=== PATIENT | female | born 1945 | race Caucasian/White ===

== ENCOUNTER 2024-05-07 06:24 | Emergency (ER) | payer BC, SELFPAY ==
[2024-05-07] VITALS (8 sets, daily range): BP systolic 139–153; BP diastolic 54–80; BMI 21.9
--- NOTE | 2024-05-07 07:13 | ED.GENMED ---
History of Present Illness
General
Chief Complaint: Fall
Source: patient, [facility] crew and [facility]
Exam Limitations: dementia
Time Seen by Provider: 05/07/24 06:58
Nursing documentation reviewed up to this point in time: agreed with
History of Present Illness
History of Present Illness:
Patient with history of dementia, presents [facility] ED from [facility] after she was found on the floor next to her bed by [facility] staff. Patient states that she had trouble sleeping and remembers falling off the bed, hitting her head on the floor
in the process. However, patient does not have any any complaints. Denies headache. Denies neck pain. Denies chest pain. Denies shortness of breath. Denies back pain. Denies dizziness. Denies blurred vision. Denies loss of sensation or
weakness.
Past History
Past History
ED Past Medical History: HTN, IDDM, Renal failure and Other (Dementia)
Social History
Tobacco: Non-smoker
Alcohol: None
Drug: None
Living: [facility]
Employment: Not employed
Family History
Family History: Unable to obtain (Dementia)
Review of Systems
Review of Systems
Allergies reviewed?: Yes
Unable to obtain full review of systems at this time due to: dementia
All Other Systems: Not applicable
Phy Exam
Physical Exam
Physical Exam:
Physical Exam
General: no apparent distress, not acutely ill. afebrile
Head: nc/at. eomi
Neck: supple. no midline tenderness.
Heart: s1/s2 regular rate and rhythm, no murmur. equal radial pulses.
Lungs: no acute respiratory distress. clear bilaterally
Abdomen: normal bowel sounds. not tender.
Neuro: alert and oriented x 2. no focal neurological deficits
Skin: no rash
Psychiatric: well kept. interactive and cooperative. pleasantly confused
Extremities: no edema. no calf tenderness.
Course
Orders/Labs/Results
Orders:
Orders
05/07/24 09:19
CT Head W/o Iv Contrast Urgent
Comment:
Reason For Exam: trauma
Vital Signs
Initial and Last Documented VS:
Initial Vital Signs
Temp Pulse Resp BP Pulse Ox
98.3 F 64 16 153/65 99
05/07/24 06:26 05/07/24 06:26 05/07/24 06:26 05/07/24 06:26 05/07/24 06:26
Last Documented Vital Signs
Temp Pulse Resp BP Pulse Ox
98.3 F 70 16 140/65 100
05/07/24 06:26 05/07/24 11:04 05/07/24 11:04 05/07/24 11:04 05/07/24 11:04
MDM/Problems Addressed
MDM/Problems Addressed:
CT head: NAD.
Patient remains afebrile, hemodynamically stable, and without any neurological abnormalities during extended course of observation in ED. As such, as there is no other evidence of injury noted on exam, patient will be discharged back to nursing
home for continual care.
*Critical Care Note
Total Time (30-74mins, 75-104mins- exclusive of procedures): Not Applicable
ED Attending Note
-
Portions of this chart may have been created with voice recognition software.� Occasional wrong word or��sound alike� substitutions may have occurred due to the inherent limitations of voice recognition software.
Discharge Plan
Departure
Patient Disposition: Snf/SNF
Date of Disposition: 05/07/24
Time of Disposition: 10:30
Condition: Good
Discharge Problem:
Head injury
Instructions: Head Injury in Adults (DC)
Prescriptions:
No Action
metformin 500 mg tablet
500 mg PO QPM
clonidine HCl 0.1 mg tablet
0.1 mg PO DAILY
acetaminophen 325 mg Tablet
650 mg PO Q6H PRN (Reason: mild pain)
acetaminophen 325 mg Tablet
650 mg PO Q2H PRN (Reason: elevated temp)
atorvastatin 10 mg tablet
10 mg PO HS
metoprolol tartrate 100 mg Tablet
100 mg PO BID
clonidine HCl 0.2 mg tablet
0.2 mg PO HS
hydralazine 50 mg tablet
50 mg PO BID
nystatin 100,000 unit/gram Powder
1 applic TOPICAL [id number] PRN (Reason: rash/redness)
losartan 100 mg tablet
100 mg PO DAILY
lamotrigine 100 mg tablet
100 mg PO DAILY
duloxetine 60 mg Capsule,Delayed Release(Dr/Ec)
60 mg PO HS
Janumet XR 50-500 mg tablet, ER multiphase 24 hr
1 tab PO DAILY
acetaminophen 325 mg Tablet
650 mg PO BID
insulin aspart U-100 [Novolog U-100 Insulin aspart] 100 unit/mL Solution
5 unit SC AC
pantoprazole 40 mg Tablet,Delayed Release (Dr/Ec)
40 mg PO DAILY
buspirone 10 mg Tablet
10 mg PO .AFTERNOON
docusate sodium [Colace] 100 mg Capsule
100 mg PO BID
buspirone 7.5 mg Tablet
7.5 mg PO BID
loratadine 10 mg Tablet
10 mg PO DAILY
Eucerin Lotion
1 applic TOPICAL HS
Rx Instructions:
apply to b/l legs and feet
aripiprazole [Abilify] 15 mg Tablet
15 mg PO DAILY
insulin detemir U-100 100 unit/mL (3 mL) Insulin Pen
20 unit SC HS
guaifenesin 600 mg Tablet Extended Release 12hr
600 mg PO Q12H PRN (Reason: cough/congestion)
Referrals:
Lanette Joseph MD [Family Provider] -
Activity Restrictions/Additional Instructions:
As discussed, you are being discharged [facility] to [facility] for [facility] care.
Interventions
Interventions:
*Risk Screen - Suicide Last Done: 05/07/24 06:26
*General Assessment Last Done: 05/07/24 06:26
*Neglect/Abuse Screening Last Done: 05/07/24 06:26
ED- Fall Risk Assessment Last Done: 05/07/24 06:45
*ED COVID-19 Vaccine History Last Done: 05/07/24 06:26
*Nursing Disposition Last Done: 05/07/24 11:04
ED-Musculoskeletal Assessment Last Done: 05/07/24 06:35
ED- Neurological Assessment Last Done: 05/07/24 07:07
ED-Skin Assessment Last Done: 05/07/24 06:35
Discharge Date and Time
Discharge Date/Time: 05/07/24 11:05
Print Language: SYRIAC
--- NOTE | 2024-05-07 10:46 | EDRN ---
Discharge info phoned to [facility]
== END 2024-05-07 11:05 ==
LOC: EMR 06:24
PROVIDERS: EMERGENCY PHYSICIAN Emergency Medicine; FAMILY PHYSICIAN Internal Medicine
DX: S09.90XA Unspecified injury of head, initial encounter (principal); W06.XXXA Fall from bed, initial encounter; I10 Essential (primary) hypertension; E11.9 Type 2 diabetes mellitus without complications; F03.90 Unspecified dementia, unspecified severity, without behavioral disturbance, psychotic disturbance, mood disturbance, and anxiety
CPT/HCPCS: 99284; 70450

== ENCOUNTER 2025-04-26 13:07 | Inpatient (IN) | payer MEDICARE, BC, SELFPAY ==
[2025-04-26] VITALS (18 sets, daily range): BP systolic 96–213; BP diastolic 55–97; BMI 22.1; BMI 21.8
[2025-04-26 07:50] LABS: Glucose - Point of Care 316 mg/dl (70-99)
--- NOTE | 2025-04-26 07:51 | ED.GENMED ---
History of Present Illness
General
Chief Complaint: Change in Mental Status
Source: patient and ambulance crew
Exam Limitations: dementia
Time Seen by Provider: 04/26/25 07:50
Nursing documentation reviewed up to this point in time: agreed with
History of Present Illness
History of Present Illness:
80-year-old female presents emergency department due to altered mental status unclear onset. No focal weakness patient has history of dementia she appears very fatigued. It was reported that she had some diarrhea.
Past History
Past History
ED Past Medical History: CHF, HTN, IDDM, Renal failure and Other (Dementia)
Social History
Tobacco: Non-smoker
Alcohol: None
Drug: None
Living: longterm
Employment: Not employed
Family History
Family History: Unable to obtain (Dementia)
Review of Systems
Review of Systems
Unable to obtain full review of systems at this time due to: dementia
ABD/GI: Reports diarrhea
Phy Exam
Physical Exam
Physical Exam:
Physical Exam
General: Appears drowsy temperature 99.5
Neck: supple. no meningeal signs. normal posterior pharynx
Heart: s1/s2 regular rate and rhythm, no murmur. equal radial
pulses.
HEENT: Pupils equal round reactive to light, EOMI
Lungs: no acute respiratory distress. clear bilaterally
Abdomen: normal bowel sounds. not tender. no CVAT
Neuro: alert and but not oriented. no focal neurological deficits cranial nerves II through XII intact
Skin: no rash
Psychiatric: well kept. interactive and cooperative
Extremities: no edema. no calf tenderness. negative homans. good distal pulses
Course
Orders/Labs/Results
Orders:
Orders
04/26/25 07:50
CT Head W/o Iv Contrast Urgent
Comment:
Reason For Exam: altered mental status
Cardiac Monitoring- Treatment ONCE
IV Insert/Care/Rem.- Treatment PRN
Pulse Ox/cont/shift [RESP] Stat
Quantity: 1
04/26/25 07:51
Electrocardiogram (*1) Stat
Reason for Study: Other
Other Reason for Exam: neuro symptoms
EKG- Treatment ONCE
04/26/25 07:57
Complete Blood Count/With Diff Urgent
Comprehensive Metabolic Panel Urgent
Free T4 Urgent
PTT Urgent
Prothrombin Time Urgent
TSH Reflex To Free T4 Urgent
Comment: ADD
Troponin I Urgent
Urinalysis Reflex To Culture Urgent
Date Specimen was Collected: 04/26/25
Time Specimen was Collected: 07:56
Urine Drug Abuse Screen Urgent
Date Specimen was Collected: 04/26/25
Time Specimen was Collected: 07:56
Urine Microscopic Reflex Cult Urgent
04/26/25 08:23
Add On- LAB Urgent
Tests Added?: TSH w/reflex T4
04/26/25 08:25
CT Abd/pelvis W Iv Cont Urgent
Comment:
Reason For Exam: diarrhea, leukocytosis
CR Chest - 2 Views Urgent
Comment:
Reason For Exam: altered mental status
04/26/25 09:19
Diphenhydramine [Benadryl] 50 mg IV NOW STA
Hydrocortisone Sod Succinate [Solu-Cortef] 200 mg IV NOW STA
04/26/25 11:43
Troponin I Urgent
04/26/25 11:49
Alcohol Stat
Urine Drug Abuse Screen Stat
04/26/25 11:51
Add On - Microbiology Urgent
Tests Added?: urine drug screen
Abnormal Lab Results
04/26/25 04/26/25
07:48 07:57
WBC 15.7 H 10^3/uL
(4.8-10.8)
MCH 31.1 H pg
(27.0-31.0)
MPV 10.8 H fL
(7.4-10.4)
Abs Immat Gran (auto) 0.1 H 10^3/uL
(0-0.05)
Absolute Neuts (auto) 13.0 H 10^3/uL
(1.4-6.5)
Absolute Monos (auto) 1.0 H 10^3/uL
(0.1-0.6)
Neutrophils % 82.9 H %
(42.2-75.2)
Lymphocytes % 10.0 L %
(20.5-51.1)
Chloride 97 L mmol/L
(98-107)
BUN 18 H mg/dl
(7-17)
Glucose 349 H mg/dl
(70-99)
Calcium 11.0 H mg/dl
(8.4-10.2)
Troponin I 0.114 H* ng/ml
TSH (Reflex) 0.18 L uIU/ml
(0.47-4.68)
Urine Ketones 2+ A
(Negative)
Ur Occult Blood Reflex 3+ A
(Negative)
Urine RBC 3-6 A /HPF
(0-2)
Urine Bacteria (Reflex) Few A
(Negative)
Urine Glucose 4+ A
(Negative)
Urine Albumin (Reflex) 4+ A
(Neg - Trace)
POC Glucose 316 H mg/dl
(70-99)
04/26/25 07:57
04/26/25 07:57
Vital Signs
Initial and Last Documented VS:
Initial Vital Signs
Temp Pulse Resp BP Pulse Ox
99.5 F 65 15 207/96 97
04/26/25 07:40 04/26/25 07:40 04/26/25 07:40 04/26/25 07:40 04/26/25 07:40
Last Documented Vital Signs
Temp Pulse Resp BP Pulse Ox
99.5 F 71 20 179/81 98
04/26/25 07:40 04/26/25 11:30 04/26/25 11:30 04/26/25 11:00 04/26/25 11:30
MDM/Problems Addressed
Differential Diagnosis Includes:
CVA, UTI, hypovolemia
MDM/Problems Addressed:
80-year-old female with mild troponin elevation, altered mental status. Unable to assess symptoms no signs of ST elevation NC.
Chronic conditions affecting care: HTN and Cardiomyopathy
Acute Exacerbation and/or Progression of Chronic Illness: HTN and Cardiomyopathy
*Radiology
Radiology exam reviewed: radiology read reviewed (Chest x-ray no acute findings CT head no acute findings)
*Pulse Oximetry
SaO2: 98
Oxygen Mode of Delivery: Room air
Patient hypoxic: no
*EKG
Interpreted by ED Provider?: Yes
EKG Intrepretation Date: 04/26/25
EKG Intrepretation Time: 08:27
Interpretation: normal
Comparison EKG: no changes
Heart Rate: 66
Rate: normal
Rhythm: sinus
[place]: normal axis
Interval: normal interval
QRS Pattern: normal QRS
Ischemia: no ischemia
*Raimann Machine Operator Interpretation
Rate: normal
Interpretation: normal
Heart Rate: 65
Rhythm: sinus
*Critical Care Note
Total Time (30-74mins, 75-104mins- exclusive of procedures): Not Applicable
Data Reviewed
Review of Other/Old Records Reveals: Labs
Patient Management
Social determinants of health affecting care: Living situation
Discussion with other providers: Hospitalist and Morning Nanny (neurology to evaluate)
Escalation/DeEscalation of care consider admission/obs:
admit indicated
ED Attending Note
-
Portions of this chart may have been created with voice recognition software.� Occasional wrong word or��sound alike� substitutions may have occurred due to the inherent limitations of voice recognition software.
Discharge Plan
Departure
Patient Disposition: Admit
Date of Disposition: 04/26/25
Time of Disposition: 11:45
Admit to: Telemetry
Presentation/result/management discussed w/ accepting MD/DO: Hospitalist
Patient with high blood pressure during this ER visit?: Yes
Condition: Fair
Discharge Problem:
Acute alteration in mental status, Elevated troponin, Diarrhea
Prescriptions:
No Action
metformin 500 mg tablet
500 mg PO QPM
acetaminophen 325 mg Tablet
650 mg PO Q6HPRN PRN (Reason: mild pain)
acetaminophen 325 mg Tablet
650 mg PO Q2HPRN PRN (Reason: elevated temp)
atorvastatin 10 mg tablet
10 mg PO HS
metoprolol tartrate 100 mg Tablet
100 mg PO BID
clonidine HCl 0.2 mg tablet
0.2 mg PO HS
Janumet XR 50-500 mg tablet, ER multiphase 24 hr
1 tab PO DAILY
acetaminophen 325 mg Tablet
650 mg PO BID
pantoprazole 40 mg Tablet,Delayed Release (Dr/Ec)
40 mg PO DAILY
buspirone 10 mg Tablet
10 mg PO TID
docusate sodium [Colace] 100 mg Capsule
100 mg PO BID
loratadine 10 mg Tablet
10 mg PO DAILY
Eucerin Lotion
1 applic TOPICAL HS
Rx Instructions:
apply to b/l legs and feet
trazodone 50 mg Tablet
25 mg PO HS
lisinopril 20 mg Tablet
20 mg PO DAILY
cyanocobalamin (vitamin B-12) 1,000 mcg Tablet
1,000 mcg PO DAILY
olanzapine 2.5 mg Tablet
2.5 mg PO DAILY
escitalopram oxalate [Lexapro] 10 mg Tablet
10 mg PO DAILY
cholecalciferol (vitamin D3) [Vitamin D3] 25 mcg (1,000 unit) Tablet
25 mcg PO HS
insulin glargine [Basaglar KwikPen U-100 Insulin] 100 unit/mL (3 mL) Insulin Pen
12 unit SC HS
Interventions
Interventions:
*Risk Screen - Suicide Last Done: 04/26/25 07:40
*General Assessment Last Done: 04/26/25 07:40
*Neglect/Abuse Screening Last Done: 04/26/25 07:40
*ED- Fall Risk Assessment Last Done: 04/26/25 08:18
*ED COVID-19 Vaccine History Last Done: 04/26/25 08:18
ED- Pulmonary Assessment Last Done: 04/26/25 08:19
ED- Neurological Assessment Last Done: 04/26/25 08:19
ED- Cardiac Assessment Last Done: 04/26/25 08:19
Discharge Date and Time
Print Language: SERBIAN
[2025-04-26 08:07] LABS: Hematocrit 42.0 % (37.0-47.0); Hemoglobin 14.4 g/dL (12.0-16.0); Mean Corp Hgb Conc. 34.3 g/dL (33.0-37.0); Mean Corpuscular Volume 90.7 fL (81.0-99.0); Nucleated Red Blood Cells % 0 %; Platelet Count 227 10^3/uL (130-400); Red Cell Dist. Width 12.1 % (11.5-14.5)
[2025-04-26 08:12] LABS: Urine Character Clear (Clear)
[2025-04-26 08:16] LABS: INR 1.00; PT 13.5 Sec (11.4-14.6)
[2025-04-26 08:17] LABS: APTT 26.0 Sec (23.4-35.0)
[2025-04-26 08:20] LABS: Urine White Cell 0-2 /HPF (0-5)
[2025-04-26 08:22] LABS: ALT (SGPT) 16 U/L (0-35); AST (SGOT) 20 U/L (14-36); Albumin 4.9 g/dl (3.5-5.0); Alkaline Phosphatase 77 U/L (38-126); Blood Urea Nitrogen 18 mg/dl (7-17); Calcium 11.0 mg/dl (8.4-10.2); Carbon Dioxide 29 mmol/L (22-30); Chloride 97 mmol/L (98-107); Estimated Creatinine Clearance 56 ml/min; Glucose 349 mg/dl (70-99); Potassium 4.5 mmol/L (3.5-5.1); Sodium 136 mmol/L (135-145); Total Protein 7.3 g/dl (6.3-8.2); eGFR > 60.00
[2025-04-26 08:35] LABS: Troponin I 0.114 ng/ml
[2025-04-26] MEDS: SOLU-CORTEF 200 MG IV (10:25)
[2025-04-26] MEDS: BENADRYL 50 MG IV (10:26)
--- NOTE | 2025-04-26 12:29 | HPS.HSE ---
Addendum entered and electronically signed by Mic Stanton MD 04/27/25 08:25:
CT Abd/pelvis W Iv Cont
1. There is a low-attenuation mass in the pancreas. Lack of enlargement and spread suggests this is benign.
2. There is inflammation and lack of haustral markings involving the sigmoid colon and rectum. There is mild inflammation surrounding this area suggesting colitis.
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
4. There is multilevel degenerative disc disease
Original Note:
Family Physician
-
Family Physician: Marimar Saenz
Chief Complaint
-
AMS, diarrhea , hi BP
History of Present Illness
HPI
80F Res of NH HX Dementia , HX CHF, HTN, IDDM,CKD2 seen at ER:
- pw altered mental status unclear onset.
- No focal weakness patient has history of dementia
- she appears very fatigued.
- It was reported that she had some diarrhea.
Medical History
Past Medical History
Past Medical History: Reports Other (diabetes, heart failure, CKD stage II, dementia with behavioral disturbance, gastritis)
Past Surgical History: Reports None
Social History
Tobacco: Non-smoker
Alcohol: None
Drug: None
Family History
Family History: Not pertinent
Allergies / Home Medications
Allergies reflects when Allergies were last updated in [employer].
Home Medications with original date entered in [employer]
Allergy/Medication List:
Allergies
Allergy/AdvReac Type Severity Reaction Status Date / Time
Iodinated Contrast Media Allergy Unknown Unknown Verified 01/21/23 11:59
Home Medications
acetaminophen 325 mg tablet 650 mg PO Q2H PRN elevated temp 01/21/23
acetaminophen 325 mg tablet 650 mg PO Q6H PRN mild pain 01/21/23
aripiprazole 10 mg tablet 10 mg PO HS Depression 01/21/23
atorvastatin 10 mg tablet 10 mg PO HS High Cholesterol 01/21/23
bupropion HCl 150 mg tablet,12 hr sustained-release 150 mg PO BID Depression 01/21/23
cholecalciferol (vitamin D3) 25 mcg (1,000 unit) tablet 25 mcg PO HS Supplement 01/21/23
clonidine HCl 0.1 mg tablet 0.1 mg PO DAILY Blood Pressure 01/21/23
clonidine HCl 0.2 mg tablet 0.2 mg PO HS Blood Pressure 01/21/23
cyanocobalamin (vitamin B-12) 1,000 mcg tablet 1,000 mcg PO DAILY Supplement 01/21/23
dexlansoprazole 60 mg capsule,biphase delayed release (Dexilant) 60 mg PO DAILY Gastrointestinal Issue 01/21/23
duloxetine 60 mg capsule,delayed release 60 mg PO HS Depression 01/21/23
ferrous sulfate 325 mg (65 mg iron) tablet 325 mg PO HS Supplement 01/21/23
hydralazine 50 mg tablet 50 mg PO BID Blood Pressure 01/21/23
insulin detemir U-100 100 unit/mL (3 mL) subcutaneous pen (Levemir FlexPen) 20 unit SC HS Diabetes 01/21/23
lamotrigine 100 mg tablet 100 mg PO DAILY Depression 01/21/23
losartan 100 mg tablet 100 mg PO DAILY Blood Pressure 01/21/23
metformin 500 mg tablet 500 mg PO DAILY@1700 Diabetes 01/21/23
metoprolol tartrate 100 mg tablet 100 mg PO BID Blood Pressure 01/21/23
nystatin 100,000 unit/gram topical powder 1 applic topical [id number] PRN rash/redness 01/21/23
sitagliptin phos 50 mg-metformin ER 500 mg tablet,extended rel 24h mp (Janumet XR) 1 tab PO DAILY Diabetes 01/21/23
Review of Systems
-
Unable to obtain full review of systems at this time due to: Dementia
Constitutional: Reports No Symptoms
EENT: Reports No Symptoms
Respiratory: Reports No Symptoms
Cardiac: Reports No Symptoms
Abdomen/GI: Reports Diarrhea
: Reports No Symptoms
Musculoskeletal: Reports No Symptoms
Skin: Reports No Symptoms
Neurological: Reports Other (AMS )
Endocrine: Reports No Symptoms
Hematologic/Lymphatic: Reports No Symptoms
Psych: Reports No Symptoms
Physical Exam
Vital Signs
Vital Signs
Temp Pulse Resp BP Pulse Ox
99.5 F 71 20 179/81 98
04/26/25 07:40 04/26/25 11:30 04/26/25 11:30 04/26/25 11:00 04/26/25 12:02
Physical Exam
General: Other (lethargic )
HEENT: NormoCephalic, Moist mucous membranes and Atraumatic
Respiratory: Clear
Cardiac: S1/S2 and Regular Rhythm; No Murmur or Rub
GI: Soft, Non Tender, Non Distended and Normal Bowel Sounds; No Organomegaly
Rectal: Deferred by Provider
Musculoskeletal: No Clubbing, No Cyanosis and No Edema
Skin: No Rash
Neuro: Nonfocal/grossly intact
Laboratory Results
-
04/26/25 07:57
04/26/25 07:57
Laboratory Results
PT 13.5 Sec (11.4-14.6) 04/26/25 07:57
INR 1.00 04/26/25 07:57
APTT 26.0 Sec (23.4-35.0) 04/26/25 07:57
Total Bilirubin 0.7 mg/dl (0.2-1.3) 04/26/25 07:57
AST 20 U/L (14-36) 04/26/25 07:57
ALT 16 U/L (0-35) 04/26/25 07:57
Alkaline Phosphatase 77 U/L (38-126) 04/26/25 07:57
Troponin I 0.114 ng/ml H* 04/26/25 07:57
Data Reviewed
-
CT Scan: Report Reviewed by me
Medical Tests (Nuc Med, Echo, EKG etc): Report Reviewed by me
Lab Data: Labs Reviewed by me
Old Records: Reviewed
Impression/Plan
-
Relevant VS
T 99.7
BP 213/97 --> 180/81 HR hi 60s to low 70s RR 20-24
Relevant Data
WCC 15.7 Hgb 14.4
INR 1.0
Na 136 Cl 97 H BUN 18 Cr 0.7 eGFR > 60
TPNI 0.114
TSH 0.18 L
NEG UA
ETOH level pending
UDS pending
EKG- NORMAL SINUS RHYTHM, NORMAL ECG
CXR - Unremarkable chest
HCT- There are moderate changes of cortical atrophy and chronic ischemic disease
CT A/P - report pending
04/26/23 UGI EUS ( Dr Juan José Marina
- A multi-cystic mass was identified in the pancreatic head.
Differential dx includes SCN vs cystic degeneration of solid mass vs MD-IPMN.
Fine needle aspiration performed.
- There was dilation in the common bile duct.
- One stent was visualized endosonographically in the common bile duct.
- There was no evidence of significant pathology in the left lobe of the liver.
- Return to my office in 4 weeks.
04/26/23 Cytology report
Pancreas, head, fine needle aspiration, EUS
- The current FNA specimen consists of abundant fibrous tissue and occasional atrophic pancreatic acini and
possible ductal cells with mild atypia. Given the thickened fibrous tissue present, the fibrous tissue may represent part of the �lesion�, and possibly represents sampling of a cyst wall.
- No carcinoma is identified in the current sample. Clinical and radiologic correlation recommended.
Note:
The adequacy evaluation was provided to Dr. Marina by Dr. Wilde
Last hospitalist admission: 01/21/23 - 01/25/23
PDX : Pancreatic Mass
ASSESSMENT & PLAN
AMS with lethargy: hypoactive TME ?
DDX; SET BUILDER Meds or HTN encephalopathy . So far unremarkable HCT, infective w/u , unremarakble labs
HX Dementia
- Unremarkable CXR, UA
- BP control
- Falls precuation
- FU : UDS and CT AP
- Hold trazodone and anit Histamine
- Gentle IVF
- RECEIVER/LABORER till clear till speech screen
- Neuro at bed side and formal consult pending - appreciated
HX Dementia with behavioral disturbance, currently is actually pretty good and is most likely at baseline
- c/w aripiprazole, lamotrigine, bupropion, duloxetine
Diarrhea - ? viral etiology
Equivocal for SIRS
- gentle IVF
Hypertensive urgency
- on Clonidine HS, Metoprolol BID, Lisinopril
- add IV Hydralazine PRN for SBP > 165. DBP > 110
Elevated TPNI suspect associated with HTN urgemcy
-EKG shows normal sinus rhythm
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
- control BP and trend TPNI
- c/w losartan, metoprolol, hydralazine, clonidine
- As needed hydralazine
HX type 2 diabetes
- hold Janumet and Metformin ??
- add ISS low
- Hold PPI due to risk for C Diff
HX multi-cystic mass was identified in the pancreatic head.
NEG aspiration cytology for CA ( 04/26/23)
Known to Dr Juan José Marina ( GI )
Current Cr and eGR not c/w CKD
Prior documented HX CKD stage II
- Observe Renal function
HX gastritis
DVT Px: LMWH
Code: Full
IP TLM
--- NOTE | 2025-04-26 12:33 | CON.NEURO4 ---
Addendum entered and electronically signed by Jake Cote MD 04/26/25 15:10:
Studies reviewed.
I have personally examined the patient. I reviewed and agree with the AUTO ENGINE MECHANIC's Note.
My addenda:
Minimally responsive to vigorous physical stimulation. No acute distress.
Speech unable to assess.
Follows no requests without reinforcement. No tremor.
Extra-ocular movements grossly intact. Resists eyelid opening bilaterally
Facial movements full and symmetric. Hearing intact to normal conversational volume.
Normal UE movements bilaterally on a single occasion for few seconds.
Neck: full ROM.
Chest: no dyspnea
Heart: no JVD
Ext: (-) Clubbing, (-) Cyanosis, (-) Edema
IMPRESSIONS/RECOMMENDATIONS:
Abrupt onset of change in mental status with the patient having significant apneas
Most likely secondary to underlying dementia and delirium. Delirium is most likely toxic metabolic in nature. It is not clear that the patient has hypertensive encephalopathy as the patient's blood pressure did drop from the initial elevated
recordings without significant improvement in the patient's mentation.
Check urine drug screen
Supportive care
Gradual diminishment of the patient's blood pressure by 20% over the next 24 hours
Okay to check MRI imaging of the brain for completeness
As the patient is currently on a memory center, unlikely to benefit from medications in hopes of stabilizing memory
Will continue to follow peripherally.
Original Note:
Consultation - Neurology 4
-
CONSULTING PHYSICIAN: Jake Cote MD
REFERRING PHYSICIAN: ER/Dr. Luna
DICTATED BY: DMITRY Mak
DATE/TIME OF REQUEST: 04/26/25
DATE/TIME OF CONSULTATION: 04/26/25
Reason for Consultation: Change in mental status
History of Present Illness:
This is a 80-year-old female who has presented to the hospital with report of change in mental status. Patient is currently obtunded with apneic breathing and unable to participate in conversation. Per medical records, she lives at [facility], it is unclear when her mental status changed. CT Head was obtained and is negative for any acute abnormalities. Blood pressure was 207/96 on arrival, WBC 15.7, blood glucose 349, troponin 0.114.
Past Medical History: Dementia, HTN, HLD, CHF, GERD, lumbar spinal stenosis, DM, polyneuropathy, CKD, JOSÉ, fibromyalgia
Surgical History: Cholecystectomy.
Family History: Reviewed and noncontributory.
Social History: No alcohol, tobacco, or illicit drug use.
Allergies: Iodinated contrast media.
Home Medications: See below.
Review of Symptoms:
Per the HPI. I am unable to obtain a complete review of systems�because of patient's inability to provide history.
Physical Exam:
The patient is afebrile, abdomen is nondistended, breathing is unlabored, skin is warm and dry, no edema.
Neurologic Examination:
The patient is obtunded. Opens eyes to loud voice or touch. Able to state her name, does not answer other questions. Follows minimal commands. Mild dysarthria, mostly mute. On cranial nerve assessment, pupils are 3 mm bilateral, round and reactive
to light and accommodation. Negative Dolls eyes. BRANDON visual arevalo and EOMs. There is no facial asymmetry. BRANDON hearing. BRANDON tongue and palate. Moves all extremities 5/5. BRANDON drift. No involuntary movement noted. Deep tendon reflexes are 2+ bilateral
upper and lower extremities and Babinski is absent bilaterally. BRANDON sensation, double simultaneous, and coordination.
Lab Results: See below.
Neuro Imaging:
1.CT Head 04/26/25: There are moderate changes of cortical atrophy and chronic ischemic disease.
Differentials for the patient's presentation include:
1. Change in mental status; etiology is likely mixed toxic metabolic and hypertensive encephalopathy, cannot entirely exclude small stroke but unlikely.
Patient has the following risk factors for their symptoms: uncontrolled HTN, elevated blood glucose
Recommendations:
-Supportive care.
-Goal normotension.
-Goal normoglycemia.
-Hold sedating medications.
-If symptoms don't improve, consider MRI brain imaging.
-DVT prophylaxis.
Discussed patient care with: Dr. Cote
Vital Signs and Labs
-
Vital Signs and Labs:
Vital Signs
Temp Pulse Resp BP Pulse Ox
99.5 F 71 20 179/81 98
04/26/25 07:40 04/26/25 11:30 04/26/25 11:30 04/26/25 11:00 04/26/25 12:02
Lab Results
04/26/25 07:57
04/26/25 07:57
PT 13.5 Sec (11.4-14.6) 04/26/25 07:57
INR 1.00 04/26/25 07:57
APTT 26.0 Sec (23.4-35.0) 04/26/25 07:57
Sodium 136 mmol/L (135-145) 04/26/25 07:57
Potassium 4.5 mmol/L (3.5-5.1) 04/26/25 07:57
BUN 18 mg/dl (7-17) H 04/26/25 07:57
Glucose 349 mg/dl (70-99) H 04/26/25 07:57
Calcium 11.0 mg/dl (8.4-10.2) H 04/26/25 07:57
Ur Buprenorphine Negative (Negative) 04/26/25 07:57
Medications
-
Home Medications
�Medication �Instructions �Recorded
acetaminophen 325 mg tablet 650 mg PO Q2HPRN PRN elevated temp 01/21/23
acetaminophen 325 mg tablet 650 mg PO Q6HPRN PRN mild pain 01/21/23
atorvastatin 10 mg tablet 10 mg PO HS High Cholesterol 01/21/23
clonidine HCl 0.2 mg tablet 0.2 mg PO HS Blood Pressure 01/21/23
metformin 500 mg tablet 500 mg PO QPM Diabetes 01/21/23
metoprolol tartrate 100 mg tablet 100 mg PO BID Blood Pressure 01/21/23
sitagliptin phos 50 mg-metformin 1 tab PO DAILY Diabetes 01/21/23
ER 500 mg tablet,extended rel 24h
mp (Janumet XR)
acetaminophen 325 mg tablet 650 mg PO BID 05/07/24
buspirone 10 mg tablet 10 mg PO TID 05/07/24
docusate sodium 100 mg capsule 100 mg PO BID 05/07/24
(Colace)
loratadine 10 mg tablet 10 mg PO DAILY 05/07/24
mineral oil-iso myristat-water 1 applic topical HS 05/07/24
lotion
pantoprazole 40 mg tablet,delayed 40 mg PO DAILY 05/07/24
release
cholecalciferol (vitamin D3) 25 25 mcg PO HS 04/26/25
mcg (1,000 unit) tablet (Vitamin
D3)
cyanocobalamin (vitamin B-12) 1,000 mcg PO DAILY 04/26/25
1,000 mcg tablet
escitalopram oxalate 10 mg tablet 10 mg PO DAILY 04/26/25
(Lexapro)
insulin glargine 100 unit/mL (3 12 unit SC HS 04/26/25
mL) subcutaneous pen (Basaglar
KwikPen U-100 Insulin)
lisinopril 20 mg tablet 20 mg PO DAILY 04/26/25
olanzapine 2.5 mg tablet 2.5 mg PO DAILY 04/26/25
trazodone 50 mg tablet 25 mg PO HS 04/26/25
[2025-04-26 12:35] LABS: Troponin I 0.114 ng/ml
--- NOTE | 2025-04-26 15:11 | CM ---
Initial Assessment completed via phone with patient's daughter, Kaia Vaerla, phone # [phone]
Pharmacy verified: [facility] @ [address] [facility]
Daughter reported that mother resides @ [facility]; sleeps a lot; was alert prior to present illness
PLOF: wheelchair bound; can stand and pivot w/ assistance, incontinent, able to feed self, brush her teeth; needs assistance with personal care
SNF stay 2019 @ [facility]
Transport: will need ambulance if daughter is not available when stable for discharge
Plan: Return to [facility] when medically stable
[2025-04-26] MEDS: APRESOLINE 10 MG IV (15:29)
--- NOTE | 2025-04-26 17:06 | PTCARENOTE ---
Received pt from ED via stretcher. Pt pulled over to bed with assist x4. [id number], TELIDA. Bed alarm placed and plugged in. Assessed and unable to orient to room. radiation monitor placed and reading NSR. Will continue to monitor.
[2025-04-26] MEDS: NSS 1000 IV (17:54)
[2025-04-26] MEDS: BUSPAR 10 MG PO ×2 (17:55→21:54)
[2025-04-26] MEDS: LOVENOX 40 MG SC (17:55)
[2025-04-26 18:01] LABS: Glucose - Point of Care 350 mg/dl (70-99)
[2025-04-26] MEDS: NOVOLOG FLEXPEN-LOW RESISTANCE 5 UNITS SC (18:01)
--- NOTE | 2025-04-26 18:20 | PTCARENOTE ---
Pt yelling out, 'Ow ow ow', tearful and stating that everything hurts. Does not have diet order in. MD made aware, new orders provided.
[2025-04-26 19:07] LABS: Troponin I 0.112 ng/ml
[2025-04-26] MEDS: DILAUDID 0.25 MG IV (20:10)
[2025-04-26] MEDS: LOPRESSOR 100 MG PO (20:31)
[2025-04-26 21:34] LABS: Glucose - Point of Care 224 mg/dl (70-99)
[2025-04-26] MEDS: LIPITOR 10 MG PO (21:54)
[2025-04-26] MEDS: LANTUS 0.12 UNITS SC (21:54)
[2025-04-26] MEDS: DESYREL 25 MG PO (21:54)
[2025-04-26] MEDS: CATAPRES 0.2 MG PO (21:54)
[2025-04-27] VITALS (8 sets, daily range): BP systolic 96–145; BP diastolic 51–76; BMI 21.5
[2025-04-27 00:56] LABS: Troponin I 0.147 ng/ml
--- NOTE | 2025-04-27 05:12 | PTCARENOTE ---
Patient AAOx1 unable to tolerate BiPAP. Respiratory therapist made aware @0111 that BiPAP had to be removed due to patient repeatedly ripping off mask. Patient remained on room air with no respiratory distress, nocturnal pulse ox in place @99%RA.
Patient bladder scan @0345 due to no urine output, bladder scan 221 mls.
[2025-04-27 06:29] LABS: Hematocrit 38.5 % (37.0-47.0); Hemoglobin 13.4 g/dL (12.0-16.0); Mean Corp Hgb Conc. 34.8 g/dL (33.0-37.0); Mean Corpuscular Volume 88.7 fL (81.0-99.0); Platelet Count 208 10^3/uL (130-400); Red Cell Dist. Width 12.2 % (11.5-14.5)
[2025-04-27 06:48] LABS: Blood Urea Nitrogen 31 mg/dl (7-17); Calcium 10.9 mg/dl (8.4-10.2); Carbon Dioxide 27 mmol/L (22-30); Chloride 104 mmol/L (98-107); Estimated Creatinine Clearance 49 ml/min; Glucose 75 mg/dl (70-99); Potassium 3.9 mmol/L (3.5-5.1); Sodium 138 mmol/L (135-145); eGFR > 60.00
[2025-04-27 07:06] LABS: Troponin I 0.093 ng/ml
--- NOTE | 2025-04-27 07:16 | PTCARENOTE ---
Lab informed this RN of critical troponin, result= 0.093. Trop decreased from previous at 0.147. No complaints of chest pain. MD made aware.
--- NOTE | 2025-04-27 07:53 | W.PN.NEURO.1 ---
Today's Communication / Plan
-
.
Subjective/Objective
Subjective Data
Date of Service: April 27, 2025
Neurology follow-up note
HPI: This is a 80-year-old woman who presented to [facility] on 04/26/2025 with worsening of baseline encephalopathy.
ER VS: 207/96-213/87, 65, afebrile
EKG:NSR, QTcB Int : 446 ms
PDMP: No prescribed medication
Labs: WBCs�15.7, glucose�349, calcium�11.0, normal sodium, creatinine, free T4.
Alcohol�negative
CT head wo contrast�severe generalized atrophy
According to patient's daughter Kaia, Tana's cognitive decline began in 2019.
Tana's functional status has significantly declined over time. She has been incontinent for a couple of years with pronounced aphasia and apraxia.
The patient experiences behavioral changes including agitation and goes through phases of varying lethargy. She does not recognize close family members.
The patient has no history of strokes, seizures.
PMH: Dementia with behavioral disturbance, HTN, DLP, DM, JOSÉ, polyneuropathy, fibromyalgia,
PSH: Cholecystectomy,
SH:[facility] resident; former high school home economics teacher; non-smoker; wheelchair-bound
FH: Brother�some cognitive symptoms
All: Iodine.
ROS: Positive for encephalopathy, negative for abnormal movements.
General: Well developed. In no acute distress.
Cardio: Regular rate and rhythm without murmur. Extremities are without cyanosis or edema.
Neuro:
Mental Status: A lethargic, arousable to tactile stimuli. Attends briefly. Oriented to name, person. Did not know the location of her age. Does not follow requests. No hemineglect. Nonfluent.
Cranial Nerves: Pupils are equally round and reactive to light. Horizontal extraocular movements full. Blink to threat bilaterally.
Motor: Moves all limbs within bed plane symmetrically.
Reflexes: Bilateral grasp
Sensory: Localizes noxious stimuli
Coordination: No tremors myoclonic movement
Gait: deferred
Assessment and Plan:
I. Multifactorial encephalopathy (neurodegenerative, vascular, metabolic).
II. Probable AD, severe on clinical dementia scale.
III. Hypertensive emergency/leukocytosis
- Aspiration precautions
- Strict blood pressure and glycemic control
- Will follow-up brain MRI results.
- Please check CK level
- The case was discussed with patient's daughter present at the bedside
I personally reviewed all radiology and labs along with past medical records pertinent to current medical problems. Total time spent in patient care is 35 minutes.
Thank you for allowing us to participate in the care of this patient. We will continue to follow. Please do not hesitate to contact us with any questions or concerns.
Objective Data
Vital Signs
Temp Pulse Resp BP Pulse Ox
36.5 C 52 20 102/55 98
04/27/25 03:40 04/27/25 03:40 04/27/25 03:40 04/27/25 03:40 04/27/25 03:40
Lab Results
04/27/25 06:18
04/27/25 06:18
PT 13.5 Sec (11.4-14.6) 04/26/25 07:57
INR 1.00 04/26/25 07:57
APTT 26.0 Sec (23.4-35.0) 04/26/25 07:57
Sodium 138 mmol/L (135-145) 04/27/25 06:18
Potassium 3.9 mmol/L (3.5-5.1) 04/27/25 06:18
BUN 31 mg/dl (7-17) H 04/27/25 06:18
Glucose 75 mg/dl (70-99) 04/27/25 06:18
Calcium 10.9 mg/dl (8.4-10.2) H 04/27/25 06:18
Ur Buprenorphine Negative (Negative) 04/26/25 07:57
Patient Allergies
Iodinated Contrast Media Allergy (Verified 04/26/25 08:01)
Unknown
Vital Signs and Labs
-
Vital Signs and Labs:
Vital Signs
Temp Pulse Resp BP Pulse Ox
36.6 C 83 14 116/66 100
04/27/25 12:30 04/27/25 12:30 04/27/25 12:30 04/27/25 12:30 04/27/25 12:30
Lab Results
04/27/25 06:18
04/27/25 06:18
PT 13.5 Sec (11.4-14.6) 04/26/25 07:57
INR 1.00 04/26/25 07:57
APTT 26.0 Sec (23.4-35.0) 04/26/25 07:57
Sodium 138 mmol/L (135-145) 04/27/25 06:18
Potassium 3.9 mmol/L (3.5-5.1) 04/27/25 06:18
BUN 31 mg/dl (7-17) H 04/27/25 06:18
Glucose 75 mg/dl (70-99) 04/27/25 06:18
Calcium 10.9 mg/dl (8.4-10.2) H 04/27/25 06:18
Ur Buprenorphine Negative (Negative) 04/26/25 07:57
Medications
-
Medications:
Generic Name Dose Route Start Last Admin
Trade Name Freq PRN Reason Stop Dose Admin
Acetaminophen 650 mg 04/26/25 16:56
Acetaminophen 325 Mg Tablet PO 05/24/25 16:55
Q4HPRN PRN
elevated temp
Atorvastatin Calcium 10 mg 04/26/25 22:00 04/26/25 21:54
Atorvastatin (Lipitor) 10 Mg Tablet PO 05/24/25 21:59 10 mg
HS AVANI Administration
Bisacodyl 10 mg 04/26/25 16:56
Bisacodyl 10 Mg Rectal Suppository RECTAL 05/24/25 16:55
[id number] PRN
constipation
Buspirone HCl 10 mg 04/26/25 16:56 04/27/25 08:27
Buspirone 10 Mg Tablet PO 05/24/25 16:55 10 mg
TID AVANI Administration
Clonidine HCl 0.2 mg 04/26/25 22:00 04/26/25 21:54
Clonidine 0.2 Mg Tablet PO 05/24/25 21:59 0.2 mg
HS AVANI Administration
Dextrose 12.5 grams 04/26/25 16:56
Dextrose 50% (0.5 Grams/Ml) 50 Ml Syringe IV 05/24/25 16:55
[id number] PRN
hypoglycemia
Protocol
Enoxaparin Sodium 40 mg 04/26/25 18:00 04/26/25 17:55
Enoxaparin Sodium 40 Mg/0.4 Ml Syringe SC 05/24/25 17:59 40 mg
QPM AVANI Administration
Escitalopram Oxalate 10 mg 04/27/25 08:00 04/27/25 08:27
Escitalopram 10 Mg Tablet PO 05/25/25 07:59 10 mg
DAILY AVANI Administration
Glucagon 1 mg 04/26/25 16:56
Glucagon 1 Mg Vial IM 05/24/25 16:55
PRN PRN
hypoglycemia
Protocol
Hydralazine HCl 10 mg 04/26/25 15:08 04/26/25 15:29
Hydralazine 20 Mg/Ml Vial IV 05/24/25 15:07 10 mg
Q4HPRN PRN Administration
SBP > 165, DBP > 110
Hydromorphone HCl 0.25 mg 04/26/25 18:32 04/26/25 20:10
Hydromorphone 0.25 Mg/0.5 Ml Syringe IV 05/10/25 18:31 0.25 mg
Q4HPRN PRN Administration
severe pain
Sodium Chloride 1,000 mls @ 70 mls/hr 04/26/25 16:56 04/26/25 17:54
Nss IV 1,000 mls
.[id number] AVANI Administration
Piperacillin Sod/Tazobactam Sod 3.375 gram in 50 mls @ 100 mls/hr 04/27/25 10:00 04/27/25 10:52
Zosyn IV 50 mls
Q6H AVANI Administration
Insulin Glargine 10 units/ 0.1 mls @ 0 mls/hr 04/27/25 11:48
Device SC 05/24/25 21:59
HS AVANI
As Directed
Insulin Aspart 0 units 04/26/25 16:56 04/27/25 12:50
Insulin Aspart Low Resistance 300 Units/3 Ml Pen.Injctr SC 05/24/25 16:55 Not Given
AC AVANI
Protocol
Lisinopril 20 mg 04/27/25 08:00 04/27/25 08:27
Lisinopril 20 Mg Tablet PO 05/25/25 07:59 20 mg
DAILY AVANI Administration
Loratadine 10 mg 04/28/25 08:00
Loratadine 10 Mg Tablet PO 05/26/25 07:59
DAILY AVANI
Metoprolol Tartrate 100 mg 04/26/25 20:00 04/27/25 08:27
Metoprolol 100 Mg Regular Release Tablet PO 05/24/25 19:59 100 mg
BID AVANI Administration
Olanzapine 2.5 mg 04/27/25 08:00 04/27/25 08:27
Olanzapine 2.5 Mg Tablet PO 05/25/25 07:59 2.5 mg
DAILY AVANI Administration
Pantoprazole Sodium 40 mg 04/27/25 12:00 04/27/25 13:11
Pantoprazole 40 Mg Delayed Release Tablet PO 10/25/25 11:59 40 mg
DAILY AVANI Administration
Polyethylene Glycol 17 grams 04/26/25 16:56
Polyethylene Glycol Powder 17 Grams Packet PO 05/24/25 16:55
DAILYPRN PRN
constipation
Senna/Docusate Sodium 1 tablet 04/26/25 16:56
Docusate W/Senna (Margarita-Colace) Tablet PO 05/24/25 16:55
BIDPRN PRN
constipation
Sodium Chloride 0 flush 04/26/25 16:00
Sodium Chloride 0.9% (Flush) Syringe IV 05/24/25 15:59
PER PROTOCOL AVANI
Trazodone HCl 25 mg 04/26/25 22:00 04/26/25 21:54
Trazodone 50 Mg Tablet PO 05/24/25 21:59 25 mg
HS AVANI Administration
Home Medications
-
Home Medications
acetaminophen 325 mg tablet 650 mg PO Q2HPRN PRN elevated temp 01/21/23
acetaminophen 325 mg tablet 650 mg PO Q6HPRN PRN mild pain 01/21/23
atorvastatin 10 mg tablet 10 mg PO HS High Cholesterol 01/21/23
clonidine HCl 0.2 mg tablet 0.2 mg PO HS Blood Pressure 01/21/23
metformin 500 mg tablet 500 mg PO QPM Diabetes 01/21/23
metoprolol tartrate 100 mg tablet 100 mg PO BID Blood Pressure 01/21/23
sitagliptin phos 50 mg-metformin ER 500 mg tablet,extended rel 24h mp (Janumet XR) 1 tab PO DAILY Diabetes 01/21/23
acetaminophen 325 mg tablet 650 mg PO BID 05/07/24
buspirone 10 mg tablet 10 mg PO TID Mental Health/Anxiety 05/07/24
docusate sodium 100 mg capsule (Colace) 100 mg PO BID Constipation 05/07/24
loratadine 10 mg tablet 10 mg PO DAILY Allergies 05/07/24
mineral oil-iso myristat-water lotion 1 applic topical HS 05/07/24
pantoprazole 40 mg tablet,delayed release 40 mg PO DAILY 05/07/24
cholecalciferol (vitamin D3) 25 mcg (1,000 unit) tablet (Vitamin D3) 25 mcg PO HS Supplement 04/26/25
cyanocobalamin (vitamin B-12) 1,000 mcg tablet 1,000 mcg PO DAILY Supplement 04/26/25
escitalopram oxalate 10 mg tablet (Lexapro) 10 mg PO DAILY Mental Health/Anxiety 04/26/25
insulin glargine 100 unit/mL (3 mL) subcutaneous pen (Basaglar KwikPen U-100 Insulin) 12 unit SC HS Diabetes 04/26/25
lisinopril 20 mg tablet 20 mg PO DAILY Blood Pressure 04/26/25
olanzapine 2.5 mg tablet 2.5 mg PO DAILY 04/26/25
trazodone 50 mg tablet 25 mg PO HS 04/26/25
[2025-04-27] MEDS: BUSPAR 10 MG PO ×3 (08:27→22:57)
[2025-04-27] MEDS: LEXAPRO 10 MG PO (08:27)
[2025-04-27] MEDS: ZESTRIL 20 MG PO (08:27)
[2025-04-27] MEDS: ZYPREXA 2.5 MG PO (08:27)
[2025-04-27] MEDS: LOPRESSOR 100 MG PO (08:27)
[2025-04-27 08:58] LABS: Glucose - Point of Care 83 mg/dl (70-99)
[2025-04-27 09:29] LABS: Glycohemoglobin (HgbA1c) 7.6 % (4.0-5.6)
[2025-04-27] MEDS: NOVOLOG FLEXPEN-LOW RESISTANCE SC ×3 (09:51→17:25)
[2025-04-27] MEDS: ZOSYN 50 IV ×3 (10:52→22:58)
--- NOTE | 2025-04-27 11:03 | PTOTSP ---
ST Screening
Received and appreciate consultation for SALES PROMOTION COORDINATOR screening. Chart reviewed. Pt admitted for change in mental status, fatigue, and diarrhea. Pt currently presenting with acute toxic/metabolic encephalopathy in the setting of diarrhea with possible viral
etiology, hypertensive urgency, chronic dementia with likely some element of delirium, and observed moments of significant apneas with reportedly poor tolerance of BiPAP. Pt reportedly passed her nursing dysphagia screening and was started on a
pureed diet with thin liquids. Pt's CXR is clear. Pt is currently afebrile and on room air. Pt's lab work is significant for a WBC of 13.1 Pt was recommended for an MRI of the brain for comprehensiveness.
Pt's medical hx (as it pertains to SALES PROMOTION COORDINATOR) is solely significant for dementia and GERD. Pt is known to this SALES PROMOTION COORDINATOR team from prior a prior admission during December of 2022 when she was tolerating a regular solids and thin liquids diet without issue.
Given this aforementioned information, would recommend continuing to allow pt to consume her current diet consistencies with general aspiration precautions, provided she is sufficiently awake, alert, and not in any acute respiratory distress. If
pt's respiratory status becomes compromised, would recommend placing pt temporarily NPO. As pt's acute conditions are addressed and pt's condition improves, can consider upgrading her solid diet consistencies as deemed appropriate. As of right now,
no formal SALES PROMOTION COORDINATOR evaluation is indicated at this time. If pt's results of her MRI of brain demonstrates any acute findings, can consider ordering a formal SALES PROMOTION COORDINATOR evaluation.
--- NOTE | 2025-04-27 11:29 | W.PN.HOSP.TC ---
Today's Communication/Plan
-
Monitor vital signs and see plan
Speech evaluation
Continue to monitor mental status
Continue with BP meds
Continue insulin
Start Zosyn
Check stool studies
Monitor leukocytosis
Discussed with daughter
Assessment / Plan
Assessment / Plan
General: Other (lethargic )
HEENT: NormoCephalic, Moist mucous membranes and Atraumatic
Respiratory: Clear
Cardiac: S1/S2 and Regular Rhythm; No Murmur or Rub
GI: Soft, Non Tender, Non Distended and Normal Bowel Sounds
Musculoskeletal: No Edema
Neuro: Nonfocal/grossly intact
Psych: apparent dementia
Change in mental status with lethargy suspect secondary to toxic metabolic encephalopathy secondary to colitis
Per memory care unit, recent nausea, vomiting and diarrhea this week
CT scan consistent with possible colitis
Check stool studies
Start Zosyn
Currently on pur�ed diet which was started on admission, speech evaluation. Per daughter at memory care unit patient is on regular diet
UDS pending
- Gentle IVF
UDS pending
Neurology following, defer MRI to neurology
HX Dementia with behavioral disturbance, currently is actually pretty good and is most likely at baseline
- c/w aripiprazole, lamotrigine, bupropion, duloxetine
Hypertensive urgency
- on Clonidine HS, Metoprolol BID, Lisinopril
- add IV Hydralazine PRN for SBP > 165. DBP > 110
Suspect nonischemic myocardial injury secondary to sepsis and hypertension
-EKG shows normal sinus rhythm
Probe down trended, denies any chest pain
- c/w losartan, metoprolol, hydralazine, clonidine
- As needed hydralazine
Mild hypercalcemia
Continue with fluid
Monitor
HX type 2 diabetes
A1c 7.6
- hold Janumet and Metformin
- add ISS low
Continue with Lantus, decrease to 10 units
GERD
HX multi-cystic mass was identified in the pancreatic head.
NEG aspiration cytology for CA ( 04/26/23)
Known to Dr Juan José Marina ( GI )
Current Cr and eGR not c/w CKD
Prior documented HX CKD stage II
- Observe Renal function
HX gastritis
DVT Px: LMWH
Code: Full
I spent a total of 52 minutes with the patient or on the floor. More than 50% of this time involved counseling and coordination of care.
Anticipated Discharge: > 48 hours
Subjective/Interval History
-
Date of Service: April 27, 2025
Denies pain
Objective Data
-
Labs:
Laboratory Results
04/27/25
06:18
WBC 13.1 H
Hgb 13.4
Hct 38.5
Plt Count 208
Sodium 138
Potassium 3.9
Chloride 104
Carbon Dioxide 27
BUN 31 H
Creatinine 0.8
Glucose 75
Calcium 10.9 H
Vital Signs:
Vital Signs
Temp Pulse Resp BP Pulse Ox
97.6 F 53 18 127/56 100
04/27/25 08:38 04/27/25 08:38 04/27/25 08:38 04/27/25 08:38 04/27/25 08:38
I&O
04/26/25 04/27/25 04/28/25
06:59 06:59 06:59
Intake Total 720 / 720
Balance 720 / 720
[2025-04-27 12:46] LABS: Glucose - Point of Care 77 mg/dl (70-99)
[2025-04-27] MEDS: PROTONIX 40 MG PO (13:11)
[2025-04-27] MEDS: NSS 1000 IV (16:12)
[2025-04-27 16:48] LABS: Glucose - Point of Care 123 mg/dl (70-99)
[2025-04-27] MEDS: LOVENOX 40 MG SC (18:11)
[2025-04-27] MEDS: DILAUDID 0.25 MG IV (18:22)
--- NOTE | 2025-04-27 18:49 | PTOTSP ---
ST Acute Care Evaluation
Pt currently presents with clinical signs of mild oropharyngoesophageal dysphagia characterized by prolonged mastication and bolus formation with solids, reduced bolus formation resulting in oral residue with reduced oral awareness and dependency on
others for prompts/reminders to use strategies to clear, as well as piecemeal deglutition for both solids and liquids that is suggestive of impaired pharyngeal transit and pharyngeal residue, frequent aerophagia upon ingestion, occasional eructation
s/p ingestion, and one instance of coughing s/p ingestion of thin liquids via straw that could be indicative of airway invasion.
Recommendations:
- Initiate PO diet of soft bite sized solids with thin liquids and meds whole in puree.
- Aspiration and reflux precautions: HOB upright for all meals and for at least 60 minutes after PO intake; keep HOB upright at least 30 degrees at night; small bites/sips; encourage pt to alternate bites/sips; check for oral clearance; d/c PO
intake if pt's mentation declines and pt is not sufficiently awake/alert enough to protect airway.
- LAYOUT DESIGNER to f/u re: diet tolerance, use/receptiveness to compensatory strategies, and to determine if pt would be a candidate for further diet consistency upgrades. Will also monitor cognitive linguistic status and evaluate further if indicated.
[2025-04-27] MEDS: LOPRESSOR PO (20:12)
[2025-04-27 20:38] LABS: Glucose - Point of Care 163 mg/dl (70-99)
[2025-04-27] MEDS: LIPITOR 10 MG PO (22:57)
[2025-04-27] MEDS: DESYREL 25 MG PO (22:57)
[2025-04-27] MEDS: LANTUS 0.1 UNITS SC (22:57)
[2025-04-27] MEDS: CATAPRES 0.2 MG PO (22:58)
[2025-04-28] VITALS (7 sets, daily range): BP systolic 104–150; BP diastolic 54–78; PULSE 49; O2SAT 99; BMI 21.5
[2025-04-28] MEDS: ZOSYN 50 IV ×4 (04:47→23:17)
[2025-04-28] MEDS: LOPRESSOR 5 MG IV (05:07)
--- NOTE | 2025-04-28 06:35 | PTCARENOTE ---
SILVER DESIGNER notified @7109 that patient is tachy with HR going up to 130s on monitor but not sustaining and reading Afib. EKG obtained and confirmed Afib with rapid ventricular response. Patient is alert, asymptomatic, does have a history of dementia. Order
received and administered for IV lopressor 5mg for HR >100, care plan continues.
--- NOTE | 2025-04-28 06:50 | W.PN.UPDATE ---
Update Note
Progress Note Update
Her evening metoprolol was held due to bradycardia. Heart rate jumped this morning to 130s atrial fibrillation. Lopressor 5mg IV x1 given. She is due for her am dose of metoprolol 100 mg this am.
[2025-04-28 07:02] LABS: Hematocrit 39.2 % (37.0-47.0); Hemoglobin 13.3 g/dL (12.0-16.0); Mean Corp Hgb Conc. 33.9 g/dL (33.0-37.0); Mean Corpuscular Volume 92.0 fL (81.0-99.0); Nucleated Red Blood Cells % 0 %; Platelet Count 198 10^3/uL (130-400); Red Cell Dist. Width 12.1 % (11.5-14.5)
[2025-04-28 07:23] LABS: Blood Urea Nitrogen 30 mg/dl (7-17); Calcium 10.0 mg/dl (8.4-10.2); Carbon Dioxide 28 mmol/L (22-30); Chloride 107 mmol/L (98-107); Estimated Creatinine Clearance 44 ml/min; Glucose 106 mg/dl (70-99); Potassium 3.5 mmol/L (3.5-5.1); Sodium 140 mmol/L (135-145); eGFR > 60.00
[2025-04-28 08:29] LABS: Glucose - Point of Care 116 mg/dl (70-99)
[2025-04-28] MEDS: NOVOLOG FLEXPEN-LOW RESISTANCE SC (08:50)
[2025-04-28] MEDS: LOPRESSOR 100 MG PO (09:52)
[2025-04-28] MEDS: LEXAPRO 10 MG PO (09:52)
[2025-04-28] MEDS: ZYPREXA 2.5 MG PO (09:52)
[2025-04-28] MEDS: PROTONIX 40 MG PO (09:52)
[2025-04-28] MEDS: ZESTRIL 20 MG PO (09:53)
[2025-04-28] MEDS: BUSPAR 10 MG PO ×3 (09:53→23:07)
[2025-04-28] MEDS: NSS 1000 IV (09:53)
[2025-04-28] MEDS: CLARITIN 10 MG PO (09:53)
--- NOTE | 2025-04-28 10:01 | VATNOTE ---
Pt wearing no-no at time of assessment, asked pt to change IV, pt refused.
--- NOTE | 2025-04-28 11:54 | W.PN.HOSP.TC ---
Today's Communication/Plan
-
Monitor vital signs and see plan
Continue with Zosyn
Monitor mental status, appears to be improving
Speech following
PT
Stool studies if able
MRI per neurology
Assessment / Plan
Assessment / Plan
General: No acute distress
HEENT: NormoCephalic, Moist mucous membranes and Atraumatic
Respiratory: Clear
Cardiac: S1/S2 and Regular Rhythm; No Murmur or Rub
GI: Soft, Non Tender, Non Distended and Normal Bowel Sounds
Musculoskeletal: No Edema
Neuro: Nonfocal/grossly intact
Psych: apparent dementia
Change in mental status with lethargy suspect secondary to toxic metabolic encephalopathy secondary to colitis
Per memory care unit, recent nausea, vomiting and diarrhea this week
Mental status appears to be improving
CT scan consistent with possible colitis
Check stool studies if able
Continue Zosyn, if unable to obtain stool studies then likely can treat with short course of p.o. antibiotic
Speech following, on soft diet per daughter at memory care unit patient is on regular diet
- Gentle IVF
UDS negative
Neurology following, ordered MRI per neurology
HX Dementia with behavioral disturbance, currently is actually pretty good and is most likely at baseline
- c/w aripiprazole, lamotrigine, bupropion, duloxetine
Hypertensive urgency
- on Clonidine HS, Metoprolol BID, Lisinopril
- add IV Hydralazine PRN for SBP > 165. DBP > 110
Suspect nonischemic myocardial injury secondary to sepsis and hypertension
-EKG shows normal sinus rhythm
Probe down trended, denies any chest pain
- c/w losartan, metoprolol, hydralazine, clonidine
- As needed hydralazine
Mild hypercalcemia
Improve
Continue with fluid
Monitor
HX type 2 diabetes
A1c 7.6
- hold Janumet and Metformin
- add ISS low
Continue with Lantus, decrease to 10 units
GERD
HX multi-cystic mass was identified in the pancreatic head.
NEG aspiration cytology for CA ( 04/26/23)
Known to Dr Juan José Marina ( GI )
Current Cr and eGR not c/w CKD
Prior documented HX CKD stage II
- Observe Renal function
HX gastritis
DVT Px: LMWH
Code: Full
I spent a total of 52 minutes with the patient or on the floor. More than 50% of this time involved counseling and coordination of care.
Anticipated Discharge: 24 - 48 hours
Subjective/Interval History
-
Date of Service: April 28, 2025
Appears much more awake today
Objective Data
-
Labs:
Laboratory Results
04/28/25
06:30
WBC 9.3
Hgb 13.3
Hct 39.2
Plt Count 198
Sodium 140
Potassium 3.5
Chloride 107
Carbon Dioxide 28
BUN 30 H
Creatinine 0.9
Glucose 106 H
Calcium 10.0
Vital Signs:
Vital Signs
Temp Pulse Resp BP Pulse Ox
98.0 F 52 18 104/55 99
04/28/25 11:00 04/28/25 11:00 04/28/25 11:00 04/28/25 11:00 04/28/25 11:00
I&O
04/27/25 04/28/25 04/29/25
06:59 06:59 06:59
Intake Total 720 / 720 1060 / 1060
Balance 720 / 720 1060 / 1060
[2025-04-28 12:17] LABS: Glucose - Point of Care 352 mg/dl (70-99)
[2025-04-28] MEDS: NOVOLOG FLEXPEN-LOW RESISTANCE 5 UNITS SC (13:27)
[2025-04-28 16:27] LABS: Glucose - Point of Care 247 mg/dl (70-99)
[2025-04-28] MEDS: LOVENOX 40 MG SC (17:04)
[2025-04-28] MEDS: NOVOLOG FLEXPEN-LOW RESISTANCE 2 UNITS SC (17:05)
[2025-04-28] MEDS: LOPRESSOR PO (20:56)
[2025-04-28] MEDS: LIPITOR 10 MG PO (23:07)
[2025-04-28] MEDS: DESYREL 25 MG PO (23:07)
[2025-04-28] MEDS: LANTUS 0.1 UNITS SC (23:08)
[2025-04-28] MEDS: CATAPRES 0.2 MG PO (23:09)
[2025-04-28 23:12] LABS: Glucose - Point of Care 198 mg/dl (70-99)
[2025-04-29] MEDS: NSS 1000 IV ×2 (02:07→10:57)
[2025-04-29 03:28] VITALS: BP 124/71
[2025-04-29 05:23] VITALS: BMI 22.5
[2025-04-29] MEDS: ZOSYN 50 IV ×3 (05:38→14:57)
[2025-04-29 07:00] VITALS: BP 171/58
[2025-04-29 07:09] LABS: Hematocrit 37.4 % (37.0-47.0); Hemoglobin 12.7 g/dL (12.0-16.0); Mean Corp Hgb Conc. 34.0 g/dL (33.0-37.0); Mean Corpuscular Volume 91.2 fL (81.0-99.0); Nucleated Red Blood Cells % 0 %; Platelet Count 174 10^3/uL (130-400); Red Cell Dist. Width 11.9 % (11.5-14.5)
[2025-04-29 07:33] LABS: Blood Urea Nitrogen 18 mg/dl (7-17); Calcium 9.5 mg/dl (8.4-10.2); Carbon Dioxide 28 mmol/L (22-30); Chloride 109 mmol/L (98-107); Estimated Creatinine Clearance 49 ml/min; Glucose 175 mg/dl (70-99); Potassium 3.3 mmol/L (3.5-5.1); Sodium 141 mmol/L (135-145); eGFR > 60.00
[2025-04-29 07:35] LABS: Glucose - Point of Care 148 mg/dl (70-99)
[2025-04-29] MEDS: ZYPREXA 2.5 MG PO (08:18)
[2025-04-29] MEDS: LEXAPRO 10 MG PO (08:18)
[2025-04-29] MEDS: NOVOLOG FLEXPEN-LOW RESISTANCE SC (08:18)
[2025-04-29] MEDS: PROTONIX 40 MG PO (08:18)
[2025-04-29] MEDS: BUSPAR 10 MG PO (08:19)
[2025-04-29] MEDS: ZESTRIL 20 MG PO (08:19)
[2025-04-29] MEDS: CLARITIN 10 MG PO (08:19)
[2025-04-29] MEDS: LOPRESSOR 100 MG PO (08:19)
[2025-04-29 10:57] VITALS: BP 148/68
[2025-04-29 11:30] LABS: Glucose - Point of Care 250 mg/dl (70-99)
[2025-04-29 12:07] LABS: Magnesium 1.7 mg/dl (1.6-2.3)
[2025-04-29] MEDS: KCL ELIXIR 40 MEQ PO (12:20)
[2025-04-29] MEDS: NOVOLOG FLEXPEN-LOW RESISTANCE 3 UNITS SC (12:20)
--- NOTE | 2025-04-29 12:42 | W.PN.HOSP.TC ---
Addendum entered and electronically signed by Ignacio Reeder DO 05/01/25 12:37:
Sepsis was not present on admission
Addendum entered and electronically signed by Ignacio Reeder DO 04/30/25 14:13:
Atrial fibrillation noted incidentally on EKG from 04/28.
Patient asymptomatic.
No known history of atrial fibrillation, discussed with patient's daughter Kaia.
[id number] score is 6 and therefore she is high risk for stroke.
However in light of her age and frailty along with dementia, goals of care will have to be discussed between family and the patient's primary care physician to discuss risks versus benefits of anticoagulation for stroke prevention moving forward.
All of the above was discussed with patient's daughter on the phone today and I recommend that she have a conversation with the patient's primary care physician (Dr. Marimar Saenz) to discuss whether referral to cardiology is warranted. Kaia did
mention that it has been very difficult getting her mother to follow-up appointments to various specialists due to her dementia and frailty.
Original Note:
Today's Communication/Plan
-
Discharge
Assessment / Plan
Assessment / Plan
General: No acute distress
HEENT: NormoCephalic, Moist mucous membranes and Atraumatic
Respiratory: Clear
Cardiac: S1/S2 and Regular Rhythm; No Murmur or Rub
GI: Soft, Non Tender, Non Distended and Normal Bowel Sounds
Musculoskeletal: No Edema
Neuro: Nonfocal/grossly intact
Psych: apparent dementia
Acute metabolic encephalopathy -secondary to acute colitis, acute gastroenteritis
Per memory care unit, recent nausea, vomiting and diarrhea this week
Mental status appears to be improving, discussed with nursing and patient's daughter.
CT scan consistent with possible colitis
Stool culture pending. Stool C. difficile toxin negative.
Can change to oral antibiotics on discharge. Tolerating diet.
Spoke with neurology service, can hold off on brain MRI as an inpatient and consider as outpatient.
Spoke with daughter and she prefers to hold off on brain MRI altogether as she does not do well with MRI studies due to her underlying dementia. I am okay with that plan.
Hypokalemia -Will replete orally. Magnesium 1.7
HX Dementia with behavioral disturbance, currently is actually pretty good and is most likely at baseline
- c/w aripiprazole, lamotrigine, bupropion, duloxetine
Hypertensive urgency/essential hypertension
Blood pressure improved.
Suspect nonischemic myocardial injury secondary to sepsis and hypertension
-EKG shows normal sinus rhythm
Probe down trended, denies any chest pain
- c/w losartan, metoprolol, hydralazine, clonidine
- As needed hydralazine
Mild hypercalcemia -improved. Suspect due to volume depletion.
DM2 with hyperglycemia
A1c 7.6
- Resume Janumet and Metformin on discharge
- add ISS low
Continue with Lantus
GERD
HX multi-cystic mass was identified in the pancreatic head.
NEG aspiration cytology for CA ( 04/26/23)
Known to Dr Juan José Mairna ( GI )
Current Cr and eGR not c/w CKD
Prior documented HX CKD stage II
- Observe Renal function
HX gastritis
DVT Px: LMWH
Code: Full
Dispo -medically stable for discharge back to memory care unit today. Updated daughter on the phone.
Updated case management. Follow-up with PCP.
35 minutes spent in discharge process.
Anticipated Discharge: Today
Subjective/Interval History
-
Date of Service: April 29, 2025
Patient seen and examined, no complaints.
Objective Data
-
Labs:
Laboratory Results
04/29/25
06:31
WBC 7.6
Hgb 12.7
Hct 37.4
Plt Count 174
Sodium 141
Potassium 3.3 L
Chloride 109 H
Carbon Dioxide 28
BUN 18 H
Creatinine 0.8
Glucose 175 H
Calcium 9.5
Vital Signs:
Vital Signs
Temp Pulse Resp BP Pulse Ox
98.3 F 49 17 148/68 99
04/29/25 10:57 04/29/25 10:57 04/29/25 10:57 04/29/25 10:57 04/29/25 10:57
I&O
04/28/25 04/29/25 04/30/25
06:59 06:59 06:59
Intake Total 1060 / 1060 840 / 840
Balance 1060 / 1060 840 / 840
Review of Systems
-
Unable to obtain full review of systems at this time due to: Dementia
History Source: Patient
All other systems: Reviewed and negative
--- NOTE | 2025-04-29 12:54 | W.DS.TRANS ---
DC Summary - [employer]
-
Discharge Instructions:
Discharge Diagnosis/Procedures Acute gastroenteritis
Diet Other diet
Additional Diets Soft/bite sized
Activity As tolerated,With assistance
Driving Restrictions No driving
Bathing Restrictions None
Blood Work BMP in 1 week
Instructions:
Stand-Alone Forms:
Changes to Home Medications: No
Discharge Medications:
DC Medications w/original date entered in [employer]
acetaminophen 325 mg tablet 650 mg PO Q6HPRN PRN mild pain 01/21/23
atorvastatin 10 mg tablet 10 mg PO HS High Cholesterol 01/21/23
clonidine HCl 0.2 mg tablet 0.2 mg PO HS Blood Pressure 01/21/23
metformin 500 mg tablet 500 mg PO QPM Diabetes 01/21/23
metoprolol tartrate 100 mg tablet 100 mg PO BID Blood Pressure 01/21/23
sitagliptin phos 50 mg-metformin ER 500 mg tablet,extended rel 24h mp (Janumet XR) 1 tab PO DAILY Diabetes 01/21/23
acetaminophen 325 mg tablet 650 mg PO BID 05/07/24
buspirone 10 mg tablet 10 mg PO TID Mental Health/Anxiety 05/07/24
docusate sodium 100 mg capsule (Colace) 100 mg PO BID Constipation 05/07/24
loratadine 10 mg tablet 10 mg PO DAILY Allergies 05/07/24
mineral oil-iso myristat-water lotion 1 applic topical HS 05/07/24
pantoprazole 40 mg tablet,delayed release 40 mg PO DAILY 05/07/24
cholecalciferol (vitamin D3) 25 mcg (1,000 unit) tablet (Vitamin D3) 25 mcg PO HS Supplement 04/26/25
cyanocobalamin (vitamin B-12) 1,000 mcg tablet 1,000 mcg PO DAILY Supplement 04/26/25
escitalopram oxalate 10 mg tablet (Lexapro) 10 mg PO DAILY Mental Health/Anxiety 04/26/25
insulin glargine 100 unit/mL (3 mL) subcutaneous pen (Basaglar KwikPen U-100 Insulin) 12 unit SC HS Diabetes 04/26/25
lisinopril 20 mg tablet 20 mg PO DAILY Blood Pressure 04/26/25
olanzapine 2.5 mg tablet 2.5 mg PO DAILY 04/26/25
trazodone 50 mg tablet 25 mg PO HS 04/26/25
amoxicillin 500 mg-potassium clavulanate 125 mg tablet 1 tab PO TID #10 tabs 04/29/25
potassium chloride 20 mEq/15 mL oral liquid 40 meq (30 mL) PO DAILY #0 mL 04/29/25
Home Medication Changes
Pending Results: No
--- NOTE | 2025-04-29 13:00 | CM ---
Addendum entered by Radha Verdin 04/29/25 14:00:
1530 transport
Original Note:
CM reviewed pt with attending and pt cleared for dc
Call with nursing/Pedro Helton/Umberto
PT eval reviewed and pt accepted back for admission
Call with dtr to provide update- IMM verbally reviewed, copy left bedside
Medical necessity completed
Per Pedro nursing, not sure if VN will need to be arranged until after he reviews paperwork
VN order requested in the case Pedro requests VN arrangements later on
Discharge Disposition- return to [facility] via BLS
Phone- [phone] (Umberto) Fax- [phone]
[2025-04-29 15:00] VITALS: BP 157/72
--- NOTE | 2025-04-29 16:36 | PN.CDI ---
CDI
- -
CDI:
Physician Documentation Request
Admit Date: 04/26/25 13:07
Dear Doctor Varinder,
Patient presented to ED due to change in mental status.
H&P states 'hypoactive TME?'
and progress notes 'Change in mental status with lethargy suspect secondary to toxic metabolic encephalopathy secondary to colitis'
progress note 'Acute metabolic encephalopathy...'
In an attempt to clarify potentially conflicting documentation, please clarify the type of encephalopathy
toxic metabolic encephalopathy
Acute metabolic encephalopathy
Other
Use of terms such as suspected, likely, concern for, or probable (associated with a specific diagnosis that is being evaluated, monitored, or treated as if it exists) are acceptable and can be coded in the inpatient setting, when documented at the
time of discharge.
Thank you,
Belem Georges RN, BSN
CDI Specialist
tiger text
Please use your independent medical judgment in providing your response.
--- NOTE | 2025-04-29 16:43 | PN.CDI ---
CDI
- -
CDI:
Physician Documentation Request
Admit Date: 04/26/25 13:07
Dear Doctor Varinder,
The diagnosis of atrial fibrillation was included in the signed EKG on 04/28
No noted history of atrial fib in H&P.
Please indicate in your progress notes if you are in agreement that the above diagnosis is valid for this patient:
____ - Atrial fibrillation is a valid diagnosis (Please clarify type)
____ - Atrial fibrillation is not a valid diagnosis for this patient
____ - Other
Use of terms such as suspected, likely, concern for, or probable are acceptable for a diagnosis that is being evaluated, monitored or treated as if it exists and can be coded in the inpatient setting, when documented at the time of discharge.
Thank you,
Belem Georges RN, BSN
CDI Specialist
tiger text
Please use your independent medical judgment in providing your response.
--- NOTE | 2025-05-01 08:38 | PN.CDI ---
CDI
- -
CDI:
Physician Documentation Request
Admit Date: 04/26/25 13:07
Dear Doctor Varinder,
Patient presented to ED 04/26 due to altered mental status. There was report of some diarrhea.
Patient was found to have acute metabolic encephalopathy secondary to acute colitis, acute gastroenteritis.
04/27-04/29 progress notes state 'Suspect nonischemic myocardial injury secondary to sepsis and hypertension'
Patient remained afebrile, highest respiratory rate documented as 25, heart rate documented 49-123 (123 on 04/28)
WBC
04/26/25 04/27/25 04/28/25
07:57 06:18 06:30
WBC 15.7 H 13.1 H 9.3
04/29/25
06:31
WBC 7.6
Please clarify the following:
Sepsis was present on admission
Sepsis was not present on admission
Sepsis ruled out
Other
Use of terms such as suspected, likely, concern for, or probable (associated with a specific diagnosis that is being evaluated, monitored, or treated as if it exists) are acceptable and can be coded in the inpatient setting, when documented at the
time of discharge.
Thank you,
Belem Georges RN, BSN
CDI Specialist
tiger text
Please use your independent medical judgment in providing your response.
== END 2025-04-29 16:01 | disposition home or self-care (01) | DRG 391 ==
LOC: 3 WEST ACU 13:07
PROVIDERS: Internal Medicine; ADMITTING PHYSICIAN Internal Medicine; ATTENDING PHYSICIAN Hospitalist; CONSULT PHYSICIAN Psychiatry & Neurology Neurology; EMERGENCY PHYSICIAN Emergency Medicine; FAMILY PHYSICIAN Family Medicine
DX: K52.9 Noninfective gastroenteritis and colitis, unspecified (principal); A41.9 Sepsis, unspecified organism; G93.41 Metabolic encephalopathy; F03.918 Unspecified dementia, unspecified severity, with other behavioral disturbance; I5A Non-ischemic myocardial injury (non-traumatic); I13.0 Hypertensive heart and chronic kidney disease with heart failure and stage 1 through stage 4 chronic kidney disease, or unspecified chronic kidney disease; E11.22 Type 2 diabetes mellitus with diabetic chronic kidney disease; E78.5 Hyperlipidemia, unspecified; I16.0 Hypertensive urgency; N18.2 Chronic kidney disease, stage 2 (mild); E83.52 Hypercalcemia; E87.6 Hypokalemia; E11.42 Type 2 diabetes mellitus with diabetic polyneuropathy; I48.91 Unspecified atrial fibrillation; K86.9 Disease of pancreas, unspecified; I50.9 Heart failure, unspecified; K21.9 Gastro-esophageal reflux disease without esophagitis; Z91.041 Radiographic dye allergy status; Z79.4 Long term (current) use of insulin; Z79.84 Long term (current) use of oral hypoglycemic drugs; Z79.899 Other long term (current) drug therapy
CPT/HCPCS: 70450; 71046; 74177; 80048; 80053; 80306; 81003; 81015; 82077; 82550; 82962; 83036; 83735; 84439; 84443; 84484; 85025; 85027; 85610; 85730; 87045; 87046; 87324; 87427; 87449; 89055; 92610; 93005; 94760; 94762; 96374; 96375; 97163; 99285; Q9967

== ENCOUNTER 2025-07-31 12:03 | Emergency (ER) | payer MEDICARE, BC, SELFPAY ==
[2025-07-31 12:06] VITALS: BP 134/98; BMI 22.0
--- NOTE | 2025-07-31 12:19 | ED.GENMED ---
History of Present Illness
General
Chief Complaint: Cough
Time Seen by Provider: 07/31/25 12:06
History of Present Illness
History of Present Illness:
80-year-old female with history of dementia and CHF presents to the emergency department for evaluation of decreased responsiveness as well as cough and fever. Was started empirically on Tamiflu yesterday but no flu swab was confirmed. Multiple
flu positive patient's at her nursing facility. On arrival the patient arouses to verbal stimuli and denies any complaints
Past History
Past History
ED Past Medical History: CHF, HTN, IDDM, Renal failure and Other (Dementia)
Social History
Tobacco: Non-smoker
Alcohol: None
Drug: None
Living: group home
Employment: Not employed
Family History
Family History: Unable to obtain (Dementia)
Review of Systems
Review of Systems
Allergies reviewed?: Yes
All Other Systems: ROS reviewed and negative except as documented in HPI and ROS
Phy Exam
Physical Exam
Physical Exam:
GEN: Well appearing, NAD, WDWN
HEENT: Oral mucosa moist, no scleral icterus
Cardiac: Regular rate and rhythm, no murmurs
Lung: No respiratory distress, no tachypnea, lungs clear
MSK: No gross deformity or injuries
Skin: Good color, no pallor or jaundice, no rashes
Neuro: Sleeping, arouses easily to verbal stimuli, pleasantly confused, follows commands
Psych: Calm, cooperative
Course
Orders/Labs/Results
Orders:
Orders
07/31/25 12:19
CR Chest Portable - 1 View Urgent
Comment:
Reason For Exam: cough/fever
Reason Study Needs to be Portable: Other
07/31/25 12:39
COVID-19 Antigen Urgent
Source: Nasal Swab
Complete Blood Count/With Diff Urgent
Comprehensive Metabolic Panel Urgent
Venous Blood Gas Urgent
%Oxygen/Room Air: 94
Influenza A+B Rapid Molecular Urgent
JOSE G Source: Nasal Swab
Specimen Description:
Abnormal Lab Results
07/31/25
12:39
WBC 4.7 L 10^3/uL
(4.8-10.8)
RBC 3.88 L 10^6/uL
(4.20-5.40)
Hct 34.8 L %
(37.0-47.0)
MPV 10.7 H fL
(7.4-10.4)
Absolute Lymphs (auto) 0.7 L 10^3/uL
(1.2-3.4)
Lymphocytes % 14.6 L %
(20.5-51.1)
Monocytes % 11.8 H %
(1.7-9.3)
VBG pCO2 49 H mmHg
(35-48)
VBG pO2 106 H mmHg
(30-50)
VBG HCO3 29.0 H mmol/L
(22-27)
Sodium 132 L mmol/L
(135-145)
Glucose 226 H mg/dl
(70-99)
Total Protein 6.1 L g/dl
(6.3-8.2)
07/31/25 12:39
07/31/25 12:39
Vital Signs
Initial and Last Documented VS:
Initial Vital Signs
Temp Pulse Resp BP Pulse Ox
98.3 F 58 19 134/98 926
07/31/25 12:06 07/31/25 12:06 07/31/25 12:06 07/31/25 12:06 07/31/25 12:06
Last Documented Vital Signs
Temp Pulse Resp BP Pulse Ox
98.3 F 60 20 134/98 94
07/31/25 12:06 07/31/25 17:15 07/31/25 17:15 07/31/25 12:06 07/31/25 17:15
MDM/Problems Addressed
MDM/Problems Addressed:
Patient is somnolent however this is most likely secondary to encephalopathy due to influenza. She has no signs of respiratory distress, occasionally does have brief periods of hypoxemia while sleeping but this resolves quickly. No indication for
hospitalization
*Pulse Oximetry
SaO2: 926
Oxygen Mode of Delivery: Room air
Patient hypoxic: no
*Critical Care Note
Total Time (30-74mins, 75-104mins- exclusive of procedures): Not Applicable
ED Attending Note
-
Portions of this chart may have been created with voice recognition software.� Occasional wrong word or��sound alike� substitutions may have occurred due to the inherent limitations of voice recognition software.
Discharge Plan
Departure
Patient Disposition: Home (Routine Discharge)
Date of Disposition: 07/31/25
Time of Disposition: 14:24
Patient with high blood pressure during this ER visit?: No
Discharge Problem:
Influenza
Instructions: Flu in adults (DC)
Prescriptions:
No Action
metformin 500 mg tablet
500 mg PO QPM
acetaminophen 325 mg Tablet
650 mg PO Q6HPRN PRN (Reason: mild pain)
atorvastatin 10 mg tablet
10 mg PO HS
metoprolol tartrate 100 mg Tablet
100 mg PO BID
clonidine HCl 0.2 mg tablet
0.2 mg PO HS
Janumet XR 50-500 mg tablet, ER multiphase 24 hr
1 tab PO DAILY
acetaminophen 325 mg Tablet
650 mg PO BID
pantoprazole 40 mg Tablet,Delayed Release (Dr/Ec)
40 mg PO DAILY
buspirone 10 mg Tablet
10 mg PO TID
docusate sodium [Colace] 100 mg Capsule
100 mg PO BID
loratadine 10 mg Tablet
10 mg PO DAILY
mineral oil-iso myristat-water Lotion
1 applic TOPICAL HS
Rx Instructions:
apply to b/l legs and feet
trazodone 50 mg Tablet
25 mg PO HS
lisinopril 20 mg Tablet
20 mg PO DAILY
cyanocobalamin (vitamin B-12) 1,000 mcg Tablet
1,000 mcg PO DAILY
olanzapine 2.5 mg Tablet
2.5 mg PO DAILY
escitalopram oxalate [Lexapro] 10 mg Tablet
10 mg PO DAILY
cholecalciferol (vitamin D3) [Vitamin D3] 25 mcg (1,000 unit) Tablet
25 mcg PO HS
insulin glargine [Basaglar KwikPen U-100 Insulin] 100 unit/mL (3 mL) Insulin Pen
12 unit SC HS
potassium chloride 20 mEq/15 mL Liquid
40 meq PO DAILY Qty: 0 0RF
amoxicillin-pot clavulanate 500-125 mg tablet
1 tab PO TID Qty: 10 0RF
Rx Instructions:
last day 05/02/25
Referrals:
Marimar Saenz DO [Family Provider, Family Practice]
Activity Restrictions/Additional Instructions:
continue tamiflu
Interventions
Interventions:
*General Assessment Last Done: 07/31/25 14:09
*Neglect/Abuse Screening Last Done: 07/31/25 12:06
*ED COVID-19 Vaccine History Last Done: 07/31/25 14:09
*ED Influenza Vaccine History Last Done: 07/31/25 14:09
[facility] Fall Risk Assessment Tool Last Done: 07/31/25 12:06
*Risk Screen - Suicide (C-SSRS) Last Done: 07/31/25 14:09
ED- Pulmonary Assessment Last Done: 07/31/25 14:08
Discharge Date and Time
Print Language: DANISH
[2025-07-31 13:03] LABS: Hematocrit 34.8 % (37.0-47.0); Hemoglobin 12.0 g/dL (12.0-16.0); Mean Corp Hgb Conc. 34.5 g/dL (33.0-37.0); Mean Corpuscular Volume 89.7 fL (81.0-99.0); Nucleated Red Blood Cells % 0 %; Platelet Count 152 10^3/uL (130-400); Red Cell Dist. Width 12.2 % (11.5-14.5)
[2025-07-31 13:04] LABS: Venous Blood Gas B.E. 3.0 mmol/L (-4 to +4); Venous Blood Gas O2 Sat % 98.4 %
[2025-07-31 13:25] LABS: COVID-19 Antigen Negative (Negative)
[2025-07-31 13:57] LABS: ALT (SGPT) 14 U/L (0-35); AST (SGOT) 23 U/L (14-36); Albumin 3.7 g/dl (3.5-5.0); Alkaline Phosphatase 61 U/L (38-126); Blood Urea Nitrogen 17 mg/dl (7-17); Calcium 9.8 mg/dl (8.4-10.2); Carbon Dioxide 28 mmol/L (22-30); Chloride 98 mmol/L (98-107); Estimated Creatinine Clearance 63 ml/min; Glucose 226 mg/dl (70-99); Potassium 4.4 mmol/L (3.5-5.1); Sodium 132 mmol/L (135-145); Total Protein 6.1 g/dl (6.3-8.2); eGFR > 60.00
[2025-07-31 18:17] VITALS: BP 181/81
== END 2025-07-31 18:30 | disposition home or self-care (01) ==
LOC: EMR 12:03
PROVIDERS: Physician Assistant; EMERGENCY PHYSICIAN Emergency Medicine; FAMILY PHYSICIAN Family Medicine
DX: J10.1 Influenza due to other identified influenza virus with other respiratory manifestations (principal); R05.9 Cough, unspecified; Z11.52 Encounter for screening for COVID-19; I11.0 Hypertensive heart disease with heart failure; I50.9 Heart failure, unspecified; F03.90 Unspecified dementia, unspecified severity, without behavioral disturbance, psychotic disturbance, mood disturbance, and anxiety; I13.0 Hypertensive heart and chronic kidney disease with heart failure and stage 1 through stage 4 chronic kidney disease, or unspecified chronic kidney disease; E11.22 Type 2 diabetes mellitus with diabetic chronic kidney disease; N18.9 Chronic kidney disease, unspecified; Z91.041 Radiographic dye allergy status
CPT/HCPCS: 99284; 71045; 80053; 82805; 85025; 87502; 87811